=== PATIENT | female | born 1955 | race Caucasian/White ===

== ENCOUNTER → 2017-10-16 | Outpatient (CLI) | payer BC ==
[~2017-10-16] MED LIST: ALLEGRA-D 12 HO1 TER PO; AMITRIPTYLINE H50 M1 PO; SINGULAIR10 MG PO
== END ==
LOC: MC.RAD 13:57
DX: Z12.31 Encounter for screening mammogram for malignant neoplasm of breast (principal)

== ENCOUNTER → 2020-06-22 | Outpatient (REF) | payer BC | END | disposition still patient (30) | LOC: ZCOL.LAB 19:02 | DX: L97.909 Non-pressure chronic ulcer of unspecified part of unspecified lower leg with unspecified severity (principal) ==